=== PATIENT | female | born 1995 | race American Indian/Alaskan Native ===

== ENCOUNTER 2016-10-21 17:03 | Emergency (ER) | payer SELFPAY ==
[2016-10-21] MEDS ORDERED: NORCO 5/325 PO ONE (20:28)
[2016-10-21 20:47] VITALS: BP 150/90
--- NOTE | 2016-10-21 21:00 | Emergency Department Report ---
Entered by ACRLOS RINCON, acting as scribe for CLEMENTINE SINGH PA. HPI - General Chief Complaint: Dental/Oral Time Seen by Provider: 10/21/16 20:10 - HPI HPI: 20 y/o female, PMHx of morbid obesity, asthma, c/o pain of the back middle tooth on the right side beginning 1 day ago, alleviated by Tylenol, no aggravating factors, constant since onset, 10/10 in severity. Associated ear pain but denies chills, fever, SOB, chest pain, nasal congestion and sore throat. Patient noticed the pain while brushing her teeth and states that it feels like a piece of her tooth broke off. [facility] ED Past Medical Hx - Past Medical History Previous Medical History?: Yes Hx Asthma: Yes Additional medical history: MORBID OBESITY - Surgical History Past Surgical History?: No - Family History Family history: hypertension - Social History Smoking Status: Never Smoker Substance Use Type: None - Medications Home Medications: Home Medications Medication Instructions Recorded Confirmed Last Taken Type Acetaminophen/Codeine [Tylenol 1 tab PO Q6H PRN #15 tab 10/21/16 Unknown Rx /Codeine # 3 tab] Amoxicillin [Amoxicillin TAB] 875 mg PO BID #20 tablet 10/21/16 Unknown Rx Ibuprofen [Motrin] 600 mg PO Q8H PRN #21 tablet 10/21/16 Unknown Rx ED Review of Systems ROS: Stated complaint: TOOTH ACHE Other details as noted in HPI Comment: All other systems reviewed and negative Constitutional: denies: chills, fever ENT: ear pain (pain radiating from right lower tooth to right ear), dental pain (right lower tooth) Respiratory: no symptoms reported Cardiovascular: denies: chest pain, palpitations, edema, syncope Gastrointestinal: denies: abdominal pain, nausea, vomiting Musculoskeletal: denies: back pain, arthralgia Skin: denies: rash Neurological: denies: headache, numbness, paresthesias, confusion, abnormal gait , vertigo Physical Exam - Physical Exam Vital Signs: Vital Signs 10/21/16 17:14 Temperature 98.8 F Pulse Rate 93 H Respiratory 15 Rate Blood Pressure 158/110 O2 Sat by Pulse 98 Oximetry Vital Signs 10/21/16 10/21/16 17:14 20:47 Temperature 98.8 F Pulse Rate 93 H Respiratory 15 Rate Blood Pressure 158/110 Blood Pressure 150/90 [Left] O2 Sat by Pulse 98 Oximetry General: This is a 20-year-old female that is morbidly obese, nontoxic in appearance. Physical Exam: Head: Normocephalic atraumatic Mouth: Moist, no pharyngeal exudate or erythema. Uvula is midline and oral airway is patent. No gingival enlargement or dental tenderness. No facial swelling. No peritonsillar abscesses. No dental caries noted.Tooth #29 with fracture. No pulp exposure noted. Neck: Supple, no C-spine tenderness, no tracheal deviation. Nontender to palpate. no adenopathy Ears: Bilateral TMs Pearly arias.bilateral EAC without any redness swelling or drainage Eyes: Bilateral pupils equal and reactive to light, bilateral EOM intact. Bilateral sclera and conjunctiva without injection. Normal accommodation Nose: Mucosa moist, normal mucosa .maxillary and frontal sinus non-tender to palpate. Lungs: Clear to auscultate bilaterally no rhonchi wheezes or rales. Normal work of breathing extremity; No CCE. +2 pulses. No neurovascular compromise Cardiovascular: S1-S2, regular rate rhythm. No murmurs. Skin: clean Dry and intact no rash no lesions Psych: Normal mood and behavior ED Course Vital Signs 10/21/16 17:14 Temperature 98.8 F Pulse Rate 93 H Respiratory 15 Rate Blood Pressure 158/110 O2 Sat by Pulse 98 Oximetry Vital Signs 10/21/16 10/21/16 17:14 20:47 Temperature 98.8 F Pulse Rate 93 H Respiratory 15 Rate Blood Pressure 158/110 Blood Pressure 150/90 [Left] O2 Sat by Pulse 98 Oximetry - Reevaluation(s) Reevaluation #1: 10/21/16 20:52 Patient had [place] 5/325 mg 2 tablets in emergency room for toothache. She is also elevated without any history of high blood pressure she was asymptomatic. Recheck blood pressure better but still mildly elevated. ED Medical Decision Making - Medical Decision Making ED course: Pt here for toothache and diagnosis toothache without any dental caries or gingival enlargement or cellulitis. She received [place] 5/325 2 tablets in emergency room for pain. Blood pressure is elevated in triage but still remains elevated at 150/90 prior to discharge. Discussed the patient that she needs to keep a log of her blood pressure and take her primary care doctor visit for follow-up visit. Patient discharged home on [place], Amox and Motrin. Patient reports that she has a dentist and she'll call to schedule appointment tomorrow. Homans with family in stable condition with prescription for [place], amoxicillin and Motrin Critical care attestation.: If time is entered above; I have spent that time in minutes in the direct care of this critically ill patient, excluding procedure time. ED Disposition Clinical Impression: Toothache, Otalgia, right ear, Elevated BP without diagnosis of hypertension Fracture, tooth Qualifiers: Encounter type: initial encounter Fracture type: closed Qualified Code(s): S02.5XXA - Fracture of tooth (traumatic), initial encounter for closed fracture Disposition: DISCHARGED TO HOME OR SELFCARE Is pt being admited?: No Does the pt Need Aspirin: No Condition: Stable Instructions: Toothache (ED), Earache (ED), Heart Healthy Diet (ED), Hypertension (ED), DASH Eating Plan (ED) Additional Instructions: Follow-up with your dentist, call tomorrow to schedule appointment. Do not take Tylenol No. [address] as this will cause drowsiness. keep a log of your blood pressure on a daily basis and schedule appointment with primary care doctor for blood pressure monitoring. Prescriptions: Acetaminophen/Codeine [Tylenol /Codeine # 3 tab] 1 tab PO Q6H PRN #15 tab PRN Reason: Toothache Amoxicillin [Amoxicillin TAB] 875 mg PO BID #20 tablet Ibuprofen [Motrin] 600 mg PO Q8H PRN #21 tablet PRN Reason: Pain Referrals: PRIMARY CARE, [Primary Care Provider] - 10/26/16 Your, Dentist [Other] - 10/22/16 Forms: Work/School Release Form(ED) This documentation as recorded by the MCKENZIE tamayo MATHEW,accurately reflects the service I personally performed and the decisions made by me,CLEMENTINE SINGH PA.
== END 2016-10-21 21:07 | disposition home or self-care (01) ==
LOC: ED 17:03
DX: S02.5XXA Fracture of tooth (traumatic), initial encounter for closed fracture (principal); H92.01 Otalgia, right ear; R03.0 Elevated blood-pressure reading, without diagnosis of hypertension; J45.909 Unspecified asthma, uncomplicated; E66.01 Morbid (severe) obesity due to excess calories; X58.XXXA Exposure to other specified factors, initial encounter; Y93.9 Activity, unspecified; Y92.9 Unspecified place or not applicable; Y99.9 Unspecified external cause status
CPT/HCPCS: 99282

== ENCOUNTER 2017-05-14 11:18 | Inpatient (IN) | payer SELFPAY ==
[2017-05-14 12:31] LABS: Basophils % (Auto) 0.6 % (0.0-1.8); Eosinophils % (Auto) 1.4 % (0.0-4.3); Hematocrit 46.5 % (30.3-42.9); Hemoglobin 15.2 gm/dl (10.1-14.3); Mean Corpuscular HGB Conc 33 % (30-34); Mean Corpuscular Hemoglobin 29 pg (28-32); Mean Corpuscular Volume 88 fl (79-97); Platelet Count 311 K/mm3 (140-440); Red Blood Count 5.28 M/mm3 (3.65-5.03); Red Cell Distribution Width 14.7 % (13.2-15.2); White Blood Count 7.2 K/mm3 (4.5-11.0)
[2017-05-14 12:57] LABS: Alanine Aminotransferase 636 units/L (7-56); Albumin 4.5 g/dL (3.9-5); Albumin/Globulin Ratio 1.3 %; Alkaline Phosphatase 294 units/L (35-129); BUN/Creatinine Ratio 13; Blood Urea Nitrogen 8 mg/dL (7-17); Calcium 9.2 mg/dL (8.4-10.2); Carbon Dioxide 25 mmol/L (22-30); Glucose 90 mg/dL (65-100); Lipase 11 units/L (13-60); Total Protein 8.1 g/dL (6.3-8.2)
[2017-05-14 12:58] LABS: Anion Gap 22 mmol/L; Chloride 97.8 mmol/L (98-107); Potassium 4.1 mmol/L (3.6-5.0); Sodium 141 mmol/L (137-145)
[2017-05-14 13:28] LABS: Bacteria,Urine 2+ /HPF (Negative); Bilirubin,Urine MOD (Negative); Blood,Urine NEG (Negative); Ketones,Urine NEG (Negative); Leukocyte Esterase,Urine MOD (Negative); Mucus,Urine 1+ /HPF; Nitrite,Urine NEG (Negative)
--- NOTE | 2017-05-14 16:46 | Ultrasound Report ---
FINAL REPORT EXAM: US ABDOMEN COMPLETE HISTORY: abdominal pain, hepatic dysfunction GS, Obst? TECHNIQUE: Ultrasound examination of the abdomen PRIORS: None. FINDINGS: The visible portion of the following structures reveal: Liver: No focal lesion.No enlargement. Gallbladder: No pericholecystic fluid.No evidence of wall thickening.Multiple shadowing echogenic foci most compatible with gallstones. Common bile duct: Normal caliber. Pancreas: No focal abnormality in the visible portion. Spleen: No enlargement with size at upper limits of normal.No focal lesion. Right kidney: No hydronephrosis.No solid mass.No definite calculus. Left kidney: No hydronephrosis.No solid mass.No definite calculus. Ascites: None Abdominal aorta: Normal caliber. IVC: Normal caliber. IMPRESSION: Shadowing echogenic foci most compatible with gallstones in the gallbladder lumen
--- NOTE | 2017-05-14 20:25 | Emergency Department Report ---
ED Abdominal Pain HPI - General Chief Complaint: Abdominal Pain Stated Complaint: CHEST PAIN,VOMITING Time Seen by Provider: 05/14/17 20:21 Source: patient Mode of arrival: Ambulatory Limitations: No Limitations - History of Present Illness Initial Comments: 21YO MORBIDLY OBESE FEMALE AGE CHICKEN WINGS ON WEDNESDAY AND THEN BEGAN TO HAVE INTRACTABLE NAUSEA AND VOMITING. SHE HAS EPIGASTRIC ABDOMINAL PAIN RADIATING TO HER CHEST AND NECK. PAIN IS WORSE WITH DEEP BREATHING. SHE ADMITS TO H/O ASTHMA. MD Complaint: abdominal pain - Related Data Previous Rx's Medication Instructions Recorded Last Taken Type Acetaminophen/Codeine [Tylenol 1 tab PO Q6H PRN #15 tab 10/21/16 Unknown Rx /Codeine # 3 tab] Amoxicillin [Amoxicillin TAB] 875 mg PO BID #20 tablet 10/21/16 Unknown Rx Ibuprofen [Motrin] 600 mg PO Q8H PRN #21 tablet 10/21/16 Unknown Rx Allergies Allergy/AdvReac Type Severity Reaction Status Date / Time No Known Allergies Allergy Unverified 10/21/16 17:12 ED Review of Systems ROS: Stated complaint: CHEST PAIN,VOMITING Other details as noted in HPI Constitutional: denies: chills, fever Eyes: denies: eye pain, eye discharge, vision change ENT: denies: ear pain, throat pain Respiratory: denies: cough, shortness of breath, wheezing Cardiovascular: chest pain. denies: palpitations Endocrine: no symptoms reported Gastrointestinal: abdominal pain, nausea, vomiting. denies: diarrhea Genitourinary: denies: urgency, dysuria, discharge Musculoskeletal: other (NECK PAIN). denies: back pain, joint swelling, arthralgia Skin: denies: rash, lesions Neurological: denies: headache, weakness, paresthesias Psychiatric: denies: anxiety, depression Hematological/Lymphatic: denies: easy bleeding, easy bruising ED Past Medical Hx - Past Medical History Hx Asthma: Yes Additional medical history: MORBID OBESITY - Surgical History Past Surgical History?: No - Social History Smoking Status: Never Smoker Substance Use Type: None - Medications Home Medications: Home Medications Medication Instructions Recorded Confirmed Last Taken Type Acetaminophen/Codeine [Tylenol 1 tab PO Q6H PRN #15 tab 10/21/16 Unknown Rx /Codeine # 3 tab] Amoxicillin [Amoxicillin TAB] 875 mg PO BID #20 tablet 10/21/16 Unknown Rx Ibuprofen [Motrin] 600 mg PO Q8H PRN #21 tablet 10/21/16 Unknown Rx ED Physical Exam - General Limitations: No Limitations General appearance: alert, in no apparent distress - Head Head exam: Present: atraumatic, normocephalic - Eye Eye exam: Present: normal appearance, EOMI, scleral icterus (BILATERAL) - ENT ENT exam: Present: normal orophraynx, mucous membranes moist - Neck Neck exam: Present: normal inspection, full ROM - Respiratory Respiratory exam: Present: normal lung sounds bilaterally. Absent: respiratory distress - Cardiovascular Cardiovascular Exam: Present: regular rate, normal rhythm. Absent: systolic murmur, diastolic murmur, rubs, gallop - GI/Abdominal GI/Abdominal exam: Present: soft, tenderness (RUQ MILS), normal bowel sounds, other (LARGE CENTRIPITAL FAT). Absent: guarding, rebound - Rectal Rectal exam: Present: deferred - Extremities Exam Extremities exam: Present: normal inspection, full ROM - Back Exam Back exam: Present: normal inspection, full ROM - Neurological Exam Neurological exam: Present: alert, oriented X3, CN II-XII intact - Psychiatric Psychiatric exam: Present: normal affect, normal mood - Skin Skin exam: Present: warm, dry, intact, normal color. Absent: rash ED Course Vital Signs 05/14/17 05/14/17 05/14/17 11:53 14:45 19:00 Temperature 98.1 F 98.6 F 98.3 F Pulse Rate 90 77 84 Respiratory 18 16 15 Rate Blood Pressure 135/78 Blood Pressure 144/78 150/90 [Left] O2 Sat by Pulse 98 99 100 Oximetry ED Medical Decision Making - Lab Data Result diagrams: 05/14/17 12:08 05/14/17 12:08 - Radiology Data Radiology results: report reviewed (US:GALLSTONES) Critical Care Time: Yes Critical care time in (mins) excluding proc time.: 60 Critical care attestation.: If time is entered above; I have spent that time in minutes in the direct care of this critically ill patient, excluding procedure time. [facility] ED Disposition Clinical Impression: Abnormal LFTs Cholelithiasis Qualifiers: Cholelithiasis location: gallbladder and bile duct Cholecystitis presence: with cholecystitis Cholecystitis acuity: acute Biliary obstruction: with biliary obstruction Qualified Code(s): K80.63 - Calculus of gallbladder and bile duct with acute cholecystitis with obstruction Nausea & vomiting Qualifiers: Vomiting type: unspecified Vomiting Intractability: intractable Qualified Code( s): R11.2 - Nausea with vomiting, unspecified Disposition: -09 OP ADMIT IP TO THIS HOSP Is pt being admited?: Yes Does the pt Need Aspirin: No Condition: Serious Instructions: Abdominal Pain (ED) Referrals: PRIMARY CARE, [Primary Care Provider] - 3-5 Days Time of Disposition: 21:57 (CASE REVIEWED WITH DR DENNY AND HE WILL ADMIT THE PT TO THE HOSPITAL)
--- NOTE | 2017-05-14 21:46 | History and Physical Report ---
History of Present Illness Date of examination: 05/14/17 Date of admission: 05/14/17 Chief complaint: Upper abdominal pain nausea, vomiting, diarrhea History of present illness: Patient is 21 yo with asthma, morbid obesity. She presents with upper abdominal pain, nausea, vomiting and diarrhea of a few days. Pain is 8/10, sharp pain, , no radiation. Patient states she has been having vomiting and diarrhea several times a day for the past few days. She also mentions she ate some chicken wings the day before and that symptoms may be related to that. In ED abd ultrasound showed gallstones. Labs showed elevated liver function test with Bilirubin of 4.9. She also has jaundice and she states she was not aware of, but states she had jaundice as a baby but had resolved. ED Physician discussed case with Dr. Gomes. Will admit to med/surg floor. Past History Past Medical History: other (asthma, jaundice as a baby) Past Surgical History: No surgical history Social history: single. denies: smoking Family history: diabetes, other (gallstones) Medications and Allergies Allergies Allergy/AdvReac Type Severity Reaction Status Date / Time No Known Allergies Allergy Verified 05/14/17 22:22 Home Medications Medication Instructions Recorded Confirmed Last Taken Type ALBUTEROL Inhaler [Proair] 2 puff IH QID PRN 05/14/17 05/14/17 Unknown History Albuterol Sulfate [Albuterol 0.63% 0.63 mg IH DAILY PRN 05/14/17 05/14/17 Unknown History NEBS] Review of Systems All systems: negative (No chest pain, no SOB, no fever,no cough. All other systems reviewed and are negative.) Exam - Physical Exam Narrative exam: GEN APPEARANCE : Not in acute distress, morbidly obese HEENT: Normocephalic, Atraumatic NECK : supple, no JVD LUNGS: clear to auscultation bilaterally, no rales, no wheeze HEART: S1 and S2 regular, no murmurs, rubs or gallop, ABD: Soft, tender upper abdomen, tender epigastric and right upper quadrant, non distended, normal bowel sounds EXT: No edema, no clubbing, no cyanosis NEURO: Awake,alert, oriented x 3, moves all extremities, non focal, Psych:Normal mood - Constitutional Vitals: Temp Pulse Resp BP Pulse Ox 98.3 F 84 15 150/90 100 05/14/17 19:00 05/14/17 19:00 05/14/17 19:00 05/14/17 19:00 05/14/17 19:00 Results - Labs CBC & Chem 7: 05/14/17 12:08 05/14/17 12:08 Labs: Abnormal lab results 05/14/17 05/14/17 05/14/17 Range/Units 12:08 12:08 12:52 RBC 5.28 H (3.65-5.03) M/mm3 Hgb 15.2 H (10.1-14.3) gm/dl Hct 46.5 H (30.3-42.9) % Citrus % (Auto) 10.5 H (0.0-7.3) % Chloride 97.8 L (98-107) mmol/L Creatinine 0.6 L (0.7-1.2) mg/dL Total Bilirubin 4.90 H (0.1-1.2) mg/dL AST 337 H (5-40) units/L ALT 636 H (7-56) units/L Alkaline Phosphatase 294 H (35-129) units/L Lipase 11 L (13-60) units/L Urine WBC (Auto) 43.0 H (0.0-6.0) /HPF U Epithel Cells (Auto) 37.0 H (0-13.0) /HPF Assessment and Plan Cholelithiasis. Admit to med/surg floor. Abdominal ultrasound does not show acute cystitis, but will give Zosyn until it is ruled out. Obtain CT Abdomen. Consult GI and Surgeon. Hyperbilirubinemia with Bilirubin 4.9 and jaundice. Patient states she was not elevated and she is jaundiced. Consulted GI Elevated AST and ALT. obtain acute hepatitis profile. UTI. Urine culture ordered. Covered with Zosyn . Acute gastroenteritis with nausea, vomiting, diarrhea. Give iv fluids, ordered stool studies. Morbid obesity. I counseled her on importance of diet and exercise to lose weght Asthma. This is stable. No wheezing. Albuterol prn DVT prophylaxis. SCds only since possibility of cholecystectomy Full code status
[2017-05-14] MEDS ORDERED: ZOFRAN IV ONE (21:50)
[2017-05-14] MEDS ORDERED: MORPHINE IV PRN (21:58)
[2017-05-14] MEDS ORDERED: MILK OF MAGNESIA PO PRN (21:58)
[2017-05-14] MEDS ORDERED: DULCOLAX PR PRN (21:58)
[2017-05-14] MEDS ORDERED: ZOFRAN IV PRN (21:58)
[2017-05-14] MEDS ORDERED: TYLENOL PO PRN (21:58)
[2017-05-14] MEDS ORDERED: NACL ONE (22:00)
[2017-05-14] MEDS ORDERED: BENADRYL IV ONE (23:26)
[2017-05-14] MEDS: D5/0.45NS 1,000 ML IV SCH (23:40)
[2017-05-14] MEDS: PEPCID IV SCH (23:48)
--- NOTE | 2017-05-15 00:11 | Cat Scan Report ---
FINAL REPORT PROCEDURE: CT ABDOMEN PELVIS W CON TECHNIQUE: Computerized axial tomography of the abdomen and pelvis was performed after the IV injection of iodinated nonionic contrast. HISTORY: ABD PAIN,ABN LFTS COMPARISON: No prior studies are available for comparison. FINDINGS: Visualized lower thorax: No significant abnormality. Liver: Normal size and attenuation. Spleen: Normal size and attenuation. Gallbladder and biliary system: Normal. Pancreas: Normal. Adrenals: Normal. Kidneys: Normal. GI tract: There is no bowel obstruction, colitis or enteritis. The appendix is normal.. Lymph nodes and mesentery: Normal. Vasculature: Normal. Bladder: Normal. Reproductive organs: Uterus and ovaries are unremarkable per. Peritoneum: There is no ascites, free air, abscess or adenopathy.. Musculoskeletal structures: No significant abnormality. Other: None. IMPRESSION: There is no acute intra-abdominal abnormality.
[2017-05-15] MEDS ORDERED: ZOSYN/NS 4.5GM/100ML 4.5 GM/100 ML VIAL IV ONE (00:28)
[2017-05-15 00:35] LABS: INR 1.03 (0.87-1.13)
[2017-05-15] MEDS ORDERED: PROVENTIL IH PRN (03:13)
[2017-05-15 03:45] LABS: Alanine Aminotransferase 508 units/L (7-56); Albumin 4.2 g/dL (3.9-5); Albumin/Globulin Ratio 1.6 %; Alkaline Phosphatase 283 units/L (35-129); Anion Gap 20 mmol/L; BUN/Creatinine Ratio 13; Bilirubin,Direct 2.7 mg/dL (0-0.2); Bilirubin,Indirect 1.3 mg/dL; Blood Urea Nitrogen 10 mg/dL (7-17); Carbon Dioxide 25 mmol/L (22-30); Chloride 100.1 mmol/L (98-107); Glucose 89 mg/dL (65-100); Potassium 3.9 mmol/L (3.6-5.0); Sodium 141 mmol/L (137-145); Total Protein 6.8 g/dL (6.3-8.2)
[2017-05-15 04:19] LABS: Basophils % (Auto) 0.5 % (0.0-1.8); Eosinophils % (Auto) 1.3 % (0.0-4.3); Hematocrit 42.9 % (30.3-42.9); Hemoglobin 14.4 gm/dl (10.1-14.3); Mean Corpuscular HGB Conc 34 % (30-34); Mean Corpuscular Hemoglobin 30 pg (28-32); Mean Corpuscular Volume 89 fl (79-97); Platelet Count 265 K/mm3 (140-440); Red Blood Count 4.81 M/mm3 (3.65-5.03); White Blood Count 6.3 K/mm3 (4.5-11.0)
[2017-05-15] MEDS: PEPCID IV SCH ×2 (11:36→21:45)
--- NOTE | 2017-05-15 14:40 | Gastroenterology Consultation ---
History of Present Illness - Reason for Consult Consult date: 05/15/17 Jaundice and GB stones Requesting physician: IRASEMA DENNY - History of Present Illness The patient is a 21 year old female for whom consultation was requested for jaundice and GB stones. She developed epigastric, RUQ and chest pain associated with severe nausea and vomiting starting 4 days ago. ER evaluation revealed multiple GB stones, but no dilated bile ducts and CT with contrast was essentially normal. T. bili was 4.9 a AST and ALT were in the 300-600 range. MRCP was ordered but the patient's weight was above 350 lbs and this could not be done. Currently she feels better with little pain and feels hungry. Labs have improved a little over night with the T. bili now 4.0. Past History Past Medical History: other (asthma, jaundice as a baby, morbid obesity) Past Surgical History: No surgical history Social history: single. denies: smoking Family history: diabetes, other (gallstones) Medications and Allergies Allergies Allergy/AdvReac Type Severity Reaction Status Date / Time No Known Allergies Allergy Verified 05/14/17 22:22 Home Medications Medication Instructions Recorded Confirmed Last Taken Type ALBUTEROL Inhaler [Proair] 2 puff IH QID PRN 05/14/17 05/14/17 Unknown History Albuterol Sulfate [Albuterol 0.63% 0.63 mg IH DAILY PRN 05/14/17 05/14/17 Unknown History NEBS] Active Meds: Active Medications Acetaminophen (Tylenol) 650 mg PO Q4H PRN PRN Reason: Pain MILD(1-3)/Fever >100.5/MINER Albuterol (Proventil) 2.5 mg IH Q4HRT PRN PRN Reason: Shortness Of Breath Bisacodyl (Dulcolax) 10 mg MA QDAY PRN PRN Reason: Constipation unrelieved by MOM Famotidine (Pepcid) 20 mg IV NOW [facility] Last Admin: 05/14/17 23:48 Dose: 20 mg Famotidine (Pepcid) 20 mg IV BID [facility] Last Admin: 05/15/17 11:36 Dose: 20 mg Dextrose/Sodium Chloride (D5/0.45ns) 1,000 mls @ 75 mls/hr IV DIRECT [facility] Last Admin: 05/14/17 23:40 Dose: 75 mls/hr Piperacillin Sod/Tazobactam Sod (Zosyn/Ns 4.5gm/100ml) 4.5 gm in 100 mls @ 200 mls/hr IV Q6HR KAROL PRN Reason: Protocol Magnesium Hydroxide (Milk Of Magnesia) 30 ml PO Q4H PRN PRN Reason: Constipation Morphine Sulfate (Morphine) 2 mg IV Q4H PRN PRN Reason: Pain, Moderate (4-6) Ondansetron HCl (Zofran) 4 mg IV Q6H PRN PRN Reason: nausea or vomiting Review of Systems - Review of Systems Constitutional: no weight loss, no weight gain Eyes: no change in vision Ears, Nose, Throat: no decreased hearing, no difficulty swallowing, no epistaxis , no painful swallowing Cardiovascular: no chest pain, no edema, no shortness of breath Respiratory: wheezing (Intermittent wheezing due to asthma), no cough, no shortness of breath Gastrointestinal: abdominal pain, nausea, vomiting, jaundice, no diarrhea, no constipation, no change in bowel habits, no hematemesis, no BRBPR, no melena Rectal: no pain Female Genitourinary: deferred Musculoskeletal: no gait dysfunction, no joint pain, no muscle pain Integumentary: jaundice, no rash, no pruritis Neurological: no head injury, no paralysis, no weakness, no parasthesias Psychiatric: no anxiety, no memory loss, no change in sleep habits Endocrine: no cold intolerance, no heat intolerance Hematologic/Lymphatic: no easy bruising, no easy bleeding Exam - Exam Narrative Exam: Morbidly obese. - Constitutional Vital Signs: Temp Pulse Resp BP Pulse Ox 98.3 F 96 H 13 122/80 100 05/14/17 19:00 05/15/17 06:00 05/15/17 06:00 05/15/17 06:00 05/14/17 19:00 - EENT Eyes: PERRL ENT: hearing intact, clear oral mucosa, dentition normal - Neck Neck: supple, normal ROM, no masses or JVD - Respiratory Respiratory effort: normal Respiratory: bilateral: CTA - Breasts Breasts: deferred - Cardiovascular Rhythm: regular Heart Sounds: Present: S1 & S2. Absent: gallop, rub Extremities: pulses intact, No edema, normal color, Full ROM - Gastrointestinal General gastrointestinal: Present: soft, non-tender, non-distended, distended, hepatomegaly, splenomegaly, other (morbidly obesity) Rectal Exam: deferred - Genitourinary Female Genitourinary: deferred - Integumentary Integumentary: Present: clear, warm, dry - Neurologic Neurological: alert and oriented x3 - Psychiatric Psychiatric: appropriate mood/affect, intact judgment & insight, memory intact - Labs CBC & Chem 7: 05/15/17 03:10 05/15/17 03:10 Lab Results: Laboratory Results - last 24 hr 05/14/17 05/14/17 05/14/17 14:31 18:02 Unknown WBC RBC Hgb Hct MCV MCH MCHC RDW Plt Count Lymph % (Auto) [place] % (Auto) Eos % (Auto) Baso % (Auto) Lymph # [place] # Eos # Baso # Seg Neutrophils % Seg Neutrophils # PT INR Sodium Potassium Chloride Carbon Dioxide Anion Gap BUN Creatinine Estimated GFR BUN/Creatinine Ratio Glucose Calcium Total Bilirubin Direct Bilirubin Indirect Bilirubin AST ALT Alkaline Phosphatase Troponin T < 0.010 < 0.010 Total Protein Albumin Albumin/Globulin Ratio Hepatitis A IgM Ab Non-reactive Hep Bs Antigen Non-reactive Hep B Core IgM Ab Non-reactive Hepatitis C Antibody Non-reactive 05/15/17 05/15/17 05/15/17 00:11 03:10 03:10 WBC 6.3 RBC 4.81 Hgb 14.4 H Hct 42.9 MCV 89 MCH 30 MCHC 34 RDW 15.0 Plt Count 265 Lymph % (Auto) 36.9 H [place] % (Auto) 9.2 H Eos % (Auto) 1.3 Baso % (Auto) 0.5 Lymph # 2.3 [place] # 0.6 Eos # 0.1 Baso # 0.0 Seg Neutrophils % 52.1 Seg Neutrophils # 3.3 PT 14.0 INR 1.03 Sodium 141 Potassium 3.9 Chloride 100.1 Carbon Dioxide 25 Anion Gap 20 BUN 10 Creatinine 0.8 Estimated GFR > 60 BUN/Creatinine Ratio 13 Glucose 89 Calcium 9.0 Total Bilirubin 4.00 H Direct Bilirubin 2.7 H Indirect Bilirubin 1.3 AST 195 H ALT 508 H Alkaline Phosphatase 283 H Troponin T Total Protein 6.8 Albumin 4.2 Albumin/Globulin Ratio 1.6 Hepatitis A IgM Ab Hep Bs Antigen Hep B Core IgM Ab Hepatitis C Antibody Laboratory Results - last 24 hr 05/14/17 05/14/17 05/14/17 14:31 18:02 Unknown WBC RBC Hgb Hct MCV MCH MCHC RDW Plt Count Lymph % (Auto) [place] % (Auto) Eos % (Auto) Baso % (Auto) Lymph # [place] # Eos # Baso # Seg Neutrophils % Seg Neutrophils # PT INR Sodium Potassium Chloride Carbon Dioxide Anion Gap BUN Creatinine Estimated GFR BUN/Creatinine Ratio Glucose Calcium Total Bilirubin Direct Bilirubin Indirect Bilirubin AST ALT Alkaline Phosphatase Troponin T < 0.010 < 0.010 Total Protein Albumin Albumin/Globulin Ratio Hepatitis A IgM Ab Non-reactive Hep Bs Antigen Non-reactive Hep B Core IgM Ab Non-reactive Hepatitis C Antibody Non-reactive 05/15/17 05/15/17 05/15/17 00:11 03:10 03:10 WBC 6.3 RBC 4.81 Hgb 14.4 H Hct 42.9 MCV 89 MCH 30 MCHC 34 RDW 15.0 Plt Count 265 Lymph % (Auto) 36.9 H [place] % (Auto) 9.2 H Eos % (Auto) 1.3 Baso % (Auto) 0.5 Lymph # 2.3 [place] # 0.6 Eos # 0.1 Baso # 0.0 Seg Neutrophils % 52.1 Seg Neutrophils # 3.3 PT 14.0 INR 1.03 Sodium 141 Potassium 3.9 Chloride 100.1 Carbon Dioxide 25 Anion Gap 20 BUN 10 Creatinine 0.8 Estimated GFR > 60 BUN/Creatinine Ratio 13 Glucose 89 Calcium 9.0 Total Bilirubin 4.00 H Direct Bilirubin 2.7 H Indirect Bilirubin 1.3 AST 195 H ALT 508 H Alkaline Phosphatase 283 H Troponin T Total Protein 6.8 Albumin 4.2 Albumin/Globulin Ratio 1.6 Hepatitis A IgM Ab Hep Bs Antigen Hep B Core IgM Ab Hepatitis C Antibody - Imaging X-ray: report reviewed CT Scan: report reviewed Ultrasound: report reviewed Assessment and Plan - Patient Problems (1) Obstructive jaundice Current Visit: Yes Status: Acute Plan to address problem: Probable CBD stones. Although an MRCP could not be done due to her body habitus , the likelihood is high in this setting. Patient will need ERCP. The procedure was discussed at length with the patient, her mother and sister at the bedside as far as the purpose, details of the technique, alternatives ( open surgery with CDE, or observation), and risks including but not limited to bleeding, severe pancreatitis, perforation, infection and independent cardiopulmonary risks of anesthesia. She will need GET for this procedure due to her body habitus. Will observe on antibiotics, full liquids overnight. Will tentatively schedule ERCP for Wednesday. Anesthesia consultation in advance would be helpful. She was further advised of the need for GB surgery electively once the bile duct is cleared. Thank you Dr. Denny. (2) Abnormal LFTs Current Visit: Yes Status: Acute (3) Cholelithiasis Current Visit: Yes Status: Acute Qualifiers: Cholelithiasis location: gallbladder and bile duct Cholecystitis presence: with cholecystitis Cholecystitis acuity: acute Biliary obstruction: with biliary obstruction Qualified Code(s): K80.63 - Calculus of gallbladder and bile duct with acute cholecystitis with obstruction (4) Nausea & vomiting Current Visit: Yes Status: Acute Qualifiers: Vomiting type: unspecified Vomiting Intractability: intractable Qualified Code(s): R11.2 - Nausea with vomiting, unspecified
--- NOTE | 2017-05-15 15:08 | Progress Note ---
Assessment and Plan Cholelithiasis. - monitor to med/surg floor. - Abdominal ultrasound does not show acute cystitis, but will give Zosyn until it is ruled out. - Obtained CT Abdomen as MRI could not be done. Consulted GI and Surgeon. plan for ERCP on Wednesday Hyperbilirubinemia with Bilirubin 4.9 and jaundice. - likely from cholidocholithiasis Elevated AST and ALT. - negative acute hepatitis profile. UTI. - Urine culture ordered. Covered with Zosyn . Acute gastroenteritis with nausea, vomiting, diarrhea. - Give iv fluids, follow stool studies. Morbid obesity. -counseled on importance of diet and exercise to lose weght Asthma. - This is stable. No wheezing. Albuterol prn DVT prophylaxis. - SCds only since possibility of cholecystectomy Full code status Subjective Date of service: 05/15/17 Interval history: pt seen and examined could not get MRCP due to body habitus updated mother and pt at the bedside Objective - Constitutional Vitals: Vital Signs - 12hr 05/15/17 05/15/17 05/15/17 04:00 05:00 06:00 Pulse Rate 89 90 96 H Respiratory 15 16 13 Rate Blood Pressure 123/82 123/82 122/80 General appearance: Present: no acute distress, obese (morbidly) - EENT Eyes: PERRL, EOM intact ENT: hearing intact, clear oral mucosa Ears: bilateral: normal - Neck Neck: supple, normal ROM - Respiratory Respiratory effort: normal Respiratory: bilateral: CTA - Cardiovascular Rhythm: regular Heart Sounds: Present: S1 & S2. Absent: gallop, rub Extremities: pulses intact, No edema, normal color, Full ROM - Gastrointestinal General gastrointestinal: Present: soft, non-tender, normal bowel sounds - Integumentary Integumentary: clear, warm, dry - Musculoskeletal Musculoskeletal: 1, strength equal bilaterally - Neurologic Neurologic: moves all extremities - Psychiatric Psychiatric: memory intact, appropriate mood/affect, intact judgment & insight - Labs CBC & Chem 7: 05/15/17 03:10 05/15/17 03:10 Labs: Abnormal lab results 05/15/17 05/15/17 Range/Units 03:10 03:10 Hgb 14.4 H (10.1-14.3) gm/dl Lymph % (Auto) 36.9 H (13.4-35.0) % [place] % (Auto) 9.2 H (0.0-7.3) % Total Bilirubin 4.00 H (0.1-1.2) mg/dL Direct Bilirubin 2.7 H (0-0.2) mg/dL AST 195 H (5-40) units/L ALT 508 H (7-56) units/L Alkaline Phosphatase 283 H (35-129) units/L - Imaging and cardiology CT scan - abdomen: report reviewed US - abdomen: report reviewed
[2017-05-15] MEDS: D5/0.45NS 1,000 ML IV SCH (21:36)
[2017-05-15] MEDS: ZOSYN/NS 4.5GM/100ML 4.5 GM/100 ML VIAL IV SCH (22:01)
[2017-05-16] MEDS: ZOSYN/NS 4.5GM/100ML 4.5 GM/100 ML VIAL IV SCH ×4 (03:03→18:36)
[2017-05-16] MEDS: PEPCID IV SCH ×2 (03:04→10:51)
--- NOTE | 2017-05-16 14:58 | Gastroenterology Progress Note ---
Assessment and Plan - Patient Problems (1) Obstructive jaundice Current Visit: Yes Status: Acute Plan to address problem: Probable choledocholithiasis. No feasible way to obtain MRCP due to weight limitations. ERCP was discussed again with patient, mother and sister at bedside including the purpose, alternatives, benefits and significant risks. ERCP is planned for tomorrow. Will update labs. (2) Abnormal LFTs Current Visit: Yes Status: Acute (3) Cholelithiasis Current Visit: Yes Status: Acute Qualifiers: Cholelithiasis location: gallbladder and bile duct Cholecystitis presence: with cholecystitis Cholecystitis acuity: acute Biliary obstruction: with biliary obstruction Qualified Code(s): K80.63 - Calculus of gallbladder and bile duct with acute cholecystitis with obstruction (4) Nausea & vomiting Current Visit: Yes Status: Acute Qualifiers: Vomiting type: unspecified Vomiting Intractability: intractable Qualified Code(s): R11.2 - Nausea with vomiting, unspecified Subjective Date of service: 05/16/17 Principal diagnosis: Suspected choledocholithiasis, obstructive jaundice Interval history: The patient reports feeling well today. Tolerating full liquids. No abdominal pain. Objective - Constitutional Vitals: Temp Pulse Resp BP Pulse Ox 98.3 F 99 H 16 107/63 90 05/16/17 11:46 05/16/17 07:36 05/16/17 11:46 05/16/17 11:46 05/16/17 07:36 General appearance: no acute distress, other (Morbidly obese) - EENT ENT: hearing intact, clear oral mucosa, dentition normal - Neck Neck: supple, normal ROM - Respiratory Respiratory effort: normal Respiratory: bilateral: CTA - Cardiovascular Rhythm: regular - Gastrointestinal General gastrointestinal: Present: soft, non-tender, non-distended, normal bowel sounds, other (morbidly obese) - Neurologic Neurological: alert and oriented x3 - Labs CBC & Chem 7: 05/15/17 03:10 05/15/17 03:10
[2017-05-16] MEDS: D5/0.45NS 1,000 ML IV SCH (15:48)
[2017-05-16 16:06] LABS: Alanine Aminotransferase 449 units/L (7-56); Albumin/Globulin Ratio 1.5 %; Alkaline Phosphatase 287 units/L (35-129); Anion Gap 21 mmol/L; BUN/Creatinine Ratio 11; Blood Urea Nitrogen 12 mg/dL (7-17); Calcium 9.2 mg/dL (8.4-10.2); Carbon Dioxide 25 mmol/L (22-30); Chloride 100.5 mmol/L (98-107); Glucose 97 mg/dL (65-100); Potassium 4.3 mmol/L (3.6-5.0); Sodium 142 mmol/L (137-145); Total Protein 6.7 g/dL (6.3-8.2)
--- NOTE | 2017-05-16 21:55 | Progress Note ---
Assessment and Plan Cholelithiasis. - monitor to med/surg floor. - Abdominal ultrasound does not show acute cystitis, but will give Zosyn until it is ruled out. - Obtained CT Abdomen as MRI could not be done. Consulted GI and Surgeon. plan for ERCP tomorrow Hyperbilirubinemia with Bilirubin 4.9 and jaundice. - likely from cholidocholithiasis - cont to monitor liver function Elevated AST and ALT. - negative acute hepatitis profile. UTI. - Urine culture ordered. Covering with Zosyn . Acute gastroenteritis with nausea, vomiting, diarrhea. - Give iv fluids, follow stool studies. Morbid obesity. -counseled on importance of diet and exercise to lose weght Asthma. - This is stable. No wheezing. Albuterol prn DVT prophylaxis. - SCds only since possibility of cholecystectomy Full code status Subjective Date of service: 05/16/17 Principal diagnosis: Suspected choledocholithiasis, obstructive jaundice Interval history: pt seen and examined could not get MRCP due to body habitus updated mother and pt at the bedside denies any abdominal pain and states is controlled with current pain regimen tolerating full liquid diet Objective - Constitutional Vitals: Vital Signs - 12hr 05/16/17 11:46 Temperature 98.3 F Respiratory 16 Rate Blood Pressure 107/63 - Labs CBC & Chem 7: 05/15/17 03:10 05/16/17 15:32 Labs: Abnormal lab results 05/16/17 Range/Units 15:32 Total Bilirubin 4.60 H (0.1-1.2) mg/dL AST 210 H (5-40) units/L ALT 449 H (7-56) units/L Alkaline Phosphatase 287 H (35-129) units/L
--- NOTE | 2017-05-16 23:44 | Consultation ---
HISTORY OF PRESENT ILLNESS: This patient is a 21-year-old black female. She is overweight. She weighs 195 kilograms with a BMI of 69.6 per kilogram per meter square. This patient has been doing fairly well until about last Wednesday when started having some pain to the epigastrium with nausea and vomiting. The vomiting was very severe. She was evaluated in the Emergency Room. She is a known case also of bronchial asthma since she was a child. As mentioned above, she is morbidly obese. She did have some loose stool a few days before. The pain to her was sharp in the right upper quadrant radiating to the left upper aspect. This came after eating some chicken. She had a sonogram of the gallbladder area that showed stones and the liver enzymes were very elevated. The bilirubin was 4.9. She has never been to hospital for any reason. She does take some treatments for her asthma every now and then. She never had surgery before. She has no children. She gives a history of diabetes in the family. She does not have diabetes. PHYSICAL EXAMINATION: GENERAL: Showed obese black female. She is in no distress to me. She weighs 195.7 kilograms. HEAD AND NECK: Negative. NECK: Supple. BREASTS: Symmetrical, very large and pendulous. CHEST: Essentially clear to me. HEART: The heart sound normal. ABDOMEN: Protuberant, soft, minimal tenderness? in the right upper quadrant. EXTREMITIES: Showed minimal edema. IMPRESSION AND PLAN: Right upper quadrant pain, nausea and vomiting with elevated bilirubin and liver enzymes. I believe this need to be addressed with further studies. She was seen by Dr. Redman who is going to do an ERCP on her tomorrow, then go from there. I did have a lengthy talk with the patient and her mom and will be waiting on those results. In the meantime, check her liver enzymes again on a daily basis. JOB# [id number] BEVERLY/HARIKA
[2017-05-17] MEDS: ZOSYN/NS 4.5GM/100ML 4.5 GM/100 ML VIAL IV SCH ×5 (00:25→23:47)
[2017-05-17] MEDS: PEPCID IV SCH ×4 (00:25→22:04)
[2017-05-17] MEDS: D5/0.45NS 1,000 ML IV SCH (05:12)
--- NOTE | 2017-05-17 09:38 | Anesthesia Consultation ---
Anesthesia Consult and Med Hx Date of service: 05/17/17 - Airway Anesthetic Teeth Evaluation: Good ROM Head & Neck: Adequate Mental/Hyoid Distance: Adequate Mallampati Class: Class III Intubation Access Assessment: Possibly Difficult - Pre-Operative Health Status ASA Pre-Surgery Classification: ASA3 Proposed Anesthetic Plan: General - Pulmonary Hx Asthma: Yes - Other Systems Hx Obesity: Yes (Morbid obesity BMI 69.6) - Additional Comments Anesthesia Medical History Comments: Due to patient's size, decided to perform ERCP in OR under general anesthesia
--- NOTE | 2017-05-17 09:41 | Anesthesia Day of Surgery ---
Anesthesia Day of Surgery - Day of Surgery Patient Examined: Yes Patient H&P Reviewed: Yes Patient is NPO: Yes
[2017-05-17] MEDS ORDERED: NACL 0.9% 1000 ML 1,000 ML IV SCH (10:00)
[2017-05-17] MEDS ORDERED: QUELICIN ONE (10:12)
[2017-05-17] MEDS ORDERED: DIPRIVAN 10 MG/ML IV ONE ×2 (10:12→11:28)
[2017-05-17] MEDS ORDERED: XYLOCAINE MPF 2% ONE (10:12)
[2017-05-17] MEDS ORDERED: ZOFRAN ONE (10:13)
[2017-05-17] MEDS ORDERED: NACL 0.9% 100 ML ONE (10:51)
[2017-05-17] MEDS ORDERED: WATER FOR IRRIG STERILE IR ONE (10:51)
[2017-05-17] MEDS ORDERED: SUBLIMAZE ONE (10:54)
[2017-05-17] MEDS ORDERED: NEO SYNEPHRINE/NS Syringe(OR USE) IV ONE (11:10)
[2017-05-17] MEDS ORDERED: NACL 0.9% 1000 ML 1,000 ML ONE (11:14)
[2017-05-17] MEDS ORDERED: DECADRON ONE (11:43)
--- NOTE | 2017-05-17 12:36 | Operative Report ---
Operative Report Operative Report: Date of procedure: 05/17/2017 Preprocedure diagnoses: Suspected common bile duct stones. Her bilirubin of 4.9 , gallbladder stones. MRCP could not be obtained due to weight limitations Postprocedure diagnoses: Suspected stone passage from the common bile duct. Normal pancreatic duct. Procedure: Endoscopic retrograde cholangiopancreatography with sphincterotomy and balloon sweeping of the duct. Medications: Gen. endotracheal anesthesia Estimated blood loss: 0 Endoscopist: Hebert Redman M.D. After careful discussion of the nature and purpose of the procedure, risks, benefits, and alternatives consent was obtained. The patient was intubated by anesthesia and placed under anesthesia. The patient was placed in the supine position on the fluoroscopy table in the operating room. Considerable effort was required to position the patient, secure the airway and secure access for passage of the scope through the oral cavity. Because of the patient's extreme obesity there was some trauma from the patient biting her tongue and from the difficulty in getting the mouthpiece into position. She was given IV steroids by anesthesia to reduce the swelling. The Fujinon 570 side-viewing therapeutic videoscope was carefully passed per orum into the esophagus and advanced into the stomach. The stomach was insufflated with air and the contents aspirated clear. The scope was initially retroflexed. The cardia and fundus were normal. The scope was then straightened and further advanced. The antrum was normal. The scope was passed through the pylorus into the duodenum. The duodenal bulb and descending duodenum were normal in appearance. The ampulla was somewhat patulous suggesting stone passage. Next, the cannulatome was utilized to intubate the pancreatic duct. The pancreatic duct appeared [normal in caliber throughout. There were no strictures or filling defects in the pancreatic duct.]. The common bile duct was then cannulated without difficulty. The common bile duct appeared [normal in size however there was a suspected small filling defect distally in the duct. A guidewire was used to successfully obtain a deep cannulation of the common bile duct. A small papillotomy was then performed followed by 2 balloon sweeping procedures of the common bile duct. No definite stones or gravel however were removed. The duct appeared to be draining well fluoroscopically. The procedure was well-tolerated overall and she was sent to the PACU for recovery. Conclusions: Suspected common bile duct stone passage. Status post papillotomy and balloon clearance of the duct. Normal-appearing pancreatic duct. Plan: The patient. Follow-up labs. Advance to full liquid diet. The patient may be considered for referral to a specialty center in light of her morbid obesity for definitive gallbladder surgery. Electronically signed: Hebert Redman M.D.
[2017-05-17] MEDS ORDERED: NACL 0.45% 1000 ML 1,000 ML IV ONE (12:50)
--- NOTE | 2017-05-17 13:04 | Post Anesthesia Evaluation ---
- Post Anesthesia Evaluation Patient Participated: Yes Airway Patent: Yes Stable Respiratory Function: Yes Nausea/Vomiting: No Temp > 96.8F: Yes Pain Manageable: Yes Adequeate Hydration: Yes Anesthesia Complications: No Block Receding Appropriately: Not Applicable Patient on Ventilator: No
--- NOTE | 2017-05-17 14:25 | Fluoroscopy Report ---
FLUOROSCOPY ERCP BILIARY PANCREATIC DUCT History: Obstructive jaundice. Findings: Fluoroscopy was provided by radiology during ERCP by Dr. Redman of gastroenterology. 12 fluoroscopic images were captured. Please correlate with the procedural report. Impression: Successful ERCP under fluoroscopic guidance.
--- NOTE | 2017-05-17 14:50 | Progress Note ---
Assessment and Plan Cholelithiasis. - monitor to med/surg floor. - Abdominal ultrasound does not show acute cystitis, but will give Zosyn until it is ruled out. - Obtained CT Abdomen as MRI could not be done. Consulted GI and Surgeon. - s/p ERCP today with sphincterotomy and balloon sweeping of the duct for suspected CBD stone passage Hyperbilirubinemia with Bilirubin 4.9 and jaundice. - likely from cholidocholithiasis - cont to monitor liver function, negative hepatitis pannel - LFT trending down Elevated AST and ALT. - negative acute hepatitis profile. UTI. - Urine culture ordered. Covering with Zosyn . Acute gastroenteritis with nausea, vomiting, diarrhea. - Give iv fluids, follow stool studies. Morbid obesity. -counseled on importance of diet and exercise to lose weght Asthma. - This is stable. No wheezing. Albuterol prn DVT prophylaxis. - SCds only since possibility of cholecystectomy Full code status Physical exam: General appearance: Present: no acute distress, obese (morbidly) - EENT Eyes: PERRL, EOM intact ENT: hearing intact, clear oral mucosa Ears: bilateral: normal - Neck Neck: supple, normal ROM - Respiratory Respiratory effort: normal Respiratory: bilateral: CTA - Cardiovascular Rhythm: regular Heart Sounds: Present: S1 & S2. Absent: gallop, rub Extremities: pulses intact, No edema, normal color, Full ROM - Gastrointestinal General gastrointestinal: Present: soft, non-tender, normal bowel sounds - Integumentary Integumentary: clear, warm, dry - Musculoskeletal Musculoskeletal: 1, strength equal bilaterally - Neurologic Neurologic: moves all extremities - Psychiatric Psychiatric: memory intact, appropriate mood/affect, intact judgment & insight Subjective Date of service: 05/17/17 Principal diagnosis: Suspected choledocholithiasis, obstructive jaundice Interval history: pt seen and examined could not get MRCP due to body habitus updated mother and pt at the bedside s/p ERCP today Objective - Constitutional Vitals: Vital Signs - 12hr 05/17/17 05/17/17 05/17/17 07:50 09:25 09:34 Temperature 97.9 F 98.4 F 98.4 F Pulse Rate 88 101 H 101 H Respiratory 16 12 12 Rate Blood Pressure 109/56 139/85 139/85 O2 Sat by Pulse 96 97 97 Oximetry 05/17/17 05/17/17 05/17/17 12:45 12:50 12:55 Temperature Pulse Rate 85 82 82 Respiratory 17 15 20 Rate Blood Pressure 133/70 144/94 140/104 O2 Sat by Pulse 97 100 98 Oximetry 05/17/17 05/17/17 13:00 13:15 Temperature Pulse Rate 76 83 Respiratory 15 16 Rate Blood Pressure 135/88 139/88 O2 Sat by Pulse 99 100 Oximetry - Labs CBC & Chem 7: 05/15/17 03:10 05/18/17 07:06 Labs: Abnormal lab results 05/16/17 Range/Units 15:32 Total Bilirubin 4.60 H (0.1-1.2) mg/dL AST 210 H (5-40) units/L ALT 449 H (7-56) units/L Alkaline Phosphatase 287 H (35-129) units/L
[2017-05-18] MEDS: D5/0.45NS 1,000 ML IV SCH (02:13)
--- NOTE | 2017-05-18 04:42 | Progress Note ---
Subjective Narrative: seen Pt and mom yesterday post ERCP , reviewed wit Dr Obando , Pt underwent papillotomy sphicteroplasty , and billiary sweep m, alert and responsive talk to Mom as to the need for surgery eventually ,Talked to Dr Redman will try transfer to [facility] to ?Dr Michael Laura service ? will contact him , Objective Vital Signs - 12hr 05/17/17 19:59 Temperature 98.2 F Pulse Rate 77 Respiratory 18 Rate Blood Pressure 109/69 O2 Sat by Pulse 98 Oximetry - Labs 05/15/17 03:10 05/16/17 15:32
[2017-05-18] MEDS: ZOSYN/NS 4.5GM/100ML 4.5 GM/100 ML VIAL IV SCH ×2 (05:44→11:53)
[2017-05-18 07:46] LABS: Alanine Aminotransferase 312 units/L (7-56); Albumin 3.8 g/dL (3.9-5); Albumin/Globulin Ratio 1.2 %; Alkaline Phosphatase 243 units/L (35-129); Anion Gap 17 mmol/L; BUN/Creatinine Ratio 8; Blood Urea Nitrogen 7 mg/dL (7-17); Calcium 8.6 mg/dL (8.4-10.2); Carbon Dioxide 28 mmol/L (22-30); Glucose 98 mg/dL (65-100); Potassium 3.9 mmol/L (3.6-5.0); Sodium 142 mmol/L (137-145); Total Protein 6.9 g/dL (6.3-8.2)
[2017-05-18] MEDS: PEPCID IV SCH (10:23)
--- NOTE | 2017-05-18 13:38 | Discharge Summary ---
Providers - Providers Date of Admission: 05/14/17 21:58 Date of discharge: 05/18/17 Attending physician: ROZINA JARRELL 05/14/17 21:57 Consult to Physician [CONS] Stat Consulting Provider: AILIN STORY Reason For Exam: CHOLECYSTITIS Place consult to:: ED Notified:: 2046 Was contact made?: Yes If yes, spoke with:: DR STORY Time called:: 20:47 Comment:: HAVE HOSPITALIST ADMIT PT, GET GI CONSULT FOR ERCP/MRCP, GET CT OF ABD/PELV 05/14/17 21:58 Consult to Physician [CONS] Routine Consulting Provider: AILIN STORY Reason For Exam: Gall stones Place consult to:: Dr. Story Notified:: yes Comment:: Dr. Lyons notified Dr. Story at 20:47 on 05/14/17 05/14/17 22:01 Consult to Physician [CONS] Routine Consulting Provider: CLAIRE WOODS Reason For Exam: Cholelithiasis Place consult to:: answering service Notified:: yes Phone number called:: [phone] Was contact made?: Yes If yes, spoke with:: Marimar Time called:: 08:36 Primary care physician: [facility] [employer] Hospitalization Condition: Serious Hospital course: The patient is a 21 year old female presented with epigastric, RUQ and chest pain associated with severe nausea and vomiting starting 4 days ago. ER evaluation revealed multiple GB stones, but no dilated bile ducts and CT with contrast was essentially normal. T. bili was 4.9 a AST and ALT were in the 300- 600 range. MRCP was ordered but the patient's weight was above 350 lbs and this could not be done. Gi was consulted and proceeded with ERCP with papillotomy. Per GI She might have passed the stone shortly before the procedure. She will be referred to [place] for GB surgery but is also interested in bariatric surgery which she will also address at the time of her general surgery visit. Patient is to call GI office in the next few days to assist in arranging this appointment. Patient was cleared for discharged and discharged home in stable condition. Discharge diagnosis and management: Cholelithiasis. - admitted to med/surg floor. - Abdominal ultrasound does not show acute Cholicystitis, but empirically covered with Zosyn - Obtained CT Abdomen as MRI could not be done. Consulted GI and general Surgeon. - s/p ERCP today with sphincterotomy and balloon sweeping of the duct for suspected CBD stone passage Obstructive jaundice - Hyperbilirubinemia with Bilirubin 4.9 - likely from cholidocholithiasis - cont to monitor liver function, negative hepatitis pannel - LFT trending down Elevated AST and ALT. - negative acute hepatitis profile. UTI. - Treated with Zosyn . Acute gastroenteritis with nausea, vomiting, diarrhea. - Placed on iv fluids, antiemetics - symptom resolved on discharge Morbid obesity. -counseled on importance of diet and exercise to lose weght Asthma. - This is stable. No wheezing. Albuterol prn DVT prophylaxis. - SCds only Full code status Disposition: DC-01 TO HOME OR SELFCARE Time spent for discharge: 32 minutes Core Measure Documentation - Palliative Care Palliative Care/ Comfort Measures: Not Applicable - Core Measures Any of the following diagnoses?: none Exam - Physical Exam Narrative exam: Physical exam: General appearance: Present: no acute distress, obese (morbidly) - EENT Eyes: PERRL, EOM intact ENT: hearing intact, clear oral mucosa Ears: bilateral: normal - Neck Neck: supple, normal ROM - Respiratory Respiratory effort: normal Respiratory: bilateral: CTA - Cardiovascular Rhythm: regular Heart Sounds: Present: S1 & S2. Absent: gallop, rub Extremities: pulses intact, No edema, normal color, Full ROM - Gastrointestinal General gastrointestinal: Present: soft, non-tender, normal bowel sounds - Integumentary Integumentary: clear, warm, dry - Musculoskeletal Musculoskeletal: 1, strength equal bilaterally - Neurologic Neurologic: moves all extremities - Psychiatric Psychiatric: memory intact, appropriate mood/affect, intact judgment & insight - Constitutional Vitals: Temp Pulse Resp BP Pulse Ox 98.0 F 67 20 106/58 98 05/18/17 07:34 05/18/17 07:34 05/18/17 07:34 05/18/17 07:34 05/18/17 07:34 Plan Activity: advance as tolerated Weight Bearing Status: Weight Bear as Tolerated Diet: low fat, low salt Follow up with: PRIMARY CARE, [Primary Care Provider] - 3-5 Days Forms: Work/School Release Form Prescriptions: ALBUTEROL Inhaler [ProAir HFA Inhaler] 2 puff IH QID PRN #1 inha PRN Reason: Shortness Of Breath Albuterol Sulfate [Albuterol 0.63% NEBS] 0.63 mg IH DAILY PRN #30 vial.neb PRN Reason: Wheezing Ciprofloxacin HCl [Ciprofloxacin TAB] 500 mg PO Q12H #6 tab
[2017-05-18 15:23] VITALS: BP 125/80
--- NOTE | 2017-05-18 15:43 | Gastroenterology Progress Note ---
Assessment and Plan - Patient Problems (1) Obstructive jaundice Current Visit: Yes Status: Acute Plan to address problem: Rapidly resolving jaundice. S/p ERCP and papillotomy. Now asymptomatic. I suspect she passed the stone shortly before the procedure. Stable for discharge. She will be referred to [place] for GB surgery but is also interested in bariatric surgery which she will also address at the time of her general surgery visit. Patient is to call my office in the next few days for us to assist in arranging this appointment. (2) Abnormal LFTs Current Visit: Yes Status: Acute (3) Cholelithiasis Current Visit: Yes Status: Acute Qualifiers: Cholelithiasis location: gallbladder and bile duct Cholecystitis presence: with cholecystitis Cholecystitis acuity: acute Biliary obstruction: with biliary obstruction Qualified Code(s): K80.63 - Calculus of gallbladder and bile duct with acute cholecystitis with obstruction (4) Nausea & vomiting Current Visit: Yes Status: Acute Qualifiers: Vomiting type: unspecified Vomiting Intractability: intractable Qualified Code(s): R11.2 - Nausea with vomiting, unspecified Subjective Date of service: 05/18/17 Principal diagnosis: Suspected choledocholithiasis, obstructive jaundice Interval history: The patient reports feeling well today. No abdominal pain, nausea or vomiting. Objective - Constitutional Vitals: Temp Pulse Resp BP Pulse Ox 98.2 F 93 H 16 125/80 100 05/18/17 15:20 05/18/17 15:20 05/18/17 15:20 05/18/17 15:20 05/18/17 15:20 General appearance: no acute distress - EENT ENT: hearing intact, clear oral mucosa, dentition normal - Respiratory Respiratory effort: normal Respiratory: bilateral: CTA - Cardiovascular Rhythm: regular - Gastrointestinal General gastrointestinal: Present: soft, non-tender, non-distended, normal bowel sounds, other (morbidly obese) - Neurologic Neurological: alert and oriented x3 - Labs CBC & Chem 7: 05/15/17 03:10 05/18/17 07:06 Labs: Laboratory Results - last 24 hr 05/18/17 07:06 Sodium 142 Potassium 3.9 Chloride 101.0 Carbon Dioxide 28 Anion Gap 17 BUN 7 Creatinine 0.9 Estimated GFR > 60 BUN/Creatinine Ratio 8 Glucose 98 Calcium 8.6 Total Bilirubin 2.10 H AST 75 H ALT 312 H Alkaline Phosphatase 243 H Total Protein 6.9 Albumin 3.8 L Albumin/Globulin Ratio 1.2
--- NOTE | 2017-05-18 16:52 | Progress Note ---
Subjective Narrative: Doing fine ambulatory , margret ced to 2+ will d/c home to see Dr Michael Velasquez i talked to him . for Lap Pearl .LOW Fat diet . Objective Vital Signs - 12hr 05/18/17 05/18/17 07:34 15:20 Temperature 98.0 F 98.2 F Pulse Rate 67 93 H Respiratory 20 16 Rate Blood Pressure 106/58 125/80 O2 Sat by Pulse 98 100 Oximetry - Labs 05/15/17 03:10 05/18/17 07:06 Diabetes panel 05/18/17 Range/Units 07:06 Sodium 142 (137-145) mmol/L Potassium 3.9 (3.6-5.0) mmol/L Chloride 101.0 (98-107) mmol/L Carbon Dioxide 28 (22-30) mmol/L BUN 7 (7-17) mg/dL Creatinine 0.9 (0.7-1.2) mg/dL Glucose 98 (65-100) mg/dL Calcium 8.6 (8.4-10.2) mg/dL AST 75 H (5-40) units/L ALT 312 H (7-56) units/L Alkaline Phosphatase 243 H (35-129) units/L Total Protein 6.9 (6.3-8.2) g/dL Albumin 3.8 L (3.9-5) g/dL Calcium panel 05/18/17 Range/Units 07:06 Calcium 8.6 (8.4-10.2) mg/dL Albumin 3.8 L (3.9-5) g/dL Pituitary panel 05/18/17 Range/Units 07:06 Sodium 142 (137-145) mmol/L Potassium 3.9 (3.6-5.0) mmol/L Chloride 101.0 (98-107) mmol/L Carbon Dioxide 28 (22-30) mmol/L BUN 7 (7-17) mg/dL Creatinine 0.9 (0.7-1.2) mg/dL Glucose 98 (65-100) mg/dL Calcium 8.6 (8.4-10.2) mg/dL Adrenal panel 05/18/17 Range/Units 07:06 Sodium 142 (137-145) mmol/L Potassium 3.9 (3.6-5.0) mmol/L Chloride 101.0 (98-107) mmol/L Carbon Dioxide 28 (22-30) mmol/L BUN 7 (7-17) mg/dL Creatinine 0.9 (0.7-1.2) mg/dL Glucose 98 (65-100) mg/dL Calcium 8.6 (8.4-10.2) mg/dL Total Bilirubin 2.10 H (0.1-1.2) mg/dL AST 75 H (5-40) units/L ALT 312 H (7-56) units/L Alkaline Phosphatase 243 H (35-129) units/L Total Protein 6.9 (6.3-8.2) g/dL Albumin 3.8 L (3.9-5) g/dL
== END 2017-05-18 17:45 | disposition home or self-care (01) | DRG 444 ==
LOC: ED 11:18 → 3A 21:58
PROVIDERS: ADMIT Internal Medicine; ATTEND Internal Medicine
PROC: 0F798ZZ Dilation of Common Bile Duct, Via Natural or Artificial Opening Endoscopic (ICD-10-PCS; principal; 2017-05-17)
PROC: BF111ZZ Fluoroscopy of Biliary and Pancreatic Ducts using Low Osmolar Contrast (ICD-10-PCS; 2017-05-17)
DX: K80.20 Calculus of gallbladder without cholecystitis without obstruction (principal); K83.1 Obstruction of bile duct; N39.0 Urinary tract infection, site not specified; Z68.44 Body mass index [BMI] 60.0-69.9, adult; K52.9 Noninfective gastroenteritis and colitis, unspecified; E66.01 Morbid (severe) obesity due to excess calories; J45.909 Unspecified asthma, uncomplicated; Z83.3 Family history of diabetes mellitus
CPT/HCPCS: 36415; 74177; 74330; 76700; 80048; 80053; 80074; 81001; 82248; 83690; 84484; 84703; 85025; 85610; 87040; 87086; 93005; 93010; 96365; 96366; 96375; 96376; C1726; J0330; J1100; J1200; J2370; J2405; J2543; J2704; J3010; J7030; Q9967

== ENCOUNTER 2017-09-10 08:54 | Emergency (ER) | payer SELFPAY ==
[2017-09-10] MEDS ORDERED: DUONEB *Not for PRN Use IH ONE ×2 (09:34→09:44)
--- NOTE | 2017-09-10 11:25 | Emergency Department Report ---
- General Chief Complaint: Adult Asthma Stated Complaint: SOB Time Seen by Provider: 09/10/17 11:21 Source: patient Mode of arrival: Ambulatory Limitations: No Limitations - History of Present Illness Initial Comments: Patient reports difficulty breathing with wheezing upon awakening this am since the elevated pollen count this season. She only uses albuterol for rescue breathing MD Complaint: other (wheezing) Onset/Timin -: hour(s) Severity scale (0 -10): 5 Quality: other (none) Consistency: constant Improves With: nothing, other Worsens With: activity, deep breaths Context: other (pollen) Associated Symptoms: denies other symptoms, shortness of breath. denies: fever , chills, myalgias, diaphoresis, headache, rhinorrhea, nasal congestion, sore throat, stiff neck, cough, chest pain, abdominal pain, nausea, vomiting, diarrhea, dysuria, rash, confusion, right sweats, weight loss, epistaxis, hoarseness, ear pain Treatments Prior to Arrival: other (albuterol inhaler) - Related Data Previous Rx's Medication Instructions Recorded Last Taken Type Albuterol Sulfate [Albuterol 0.63% 0.63 mg IH DAILY PRN #30 vial.neb 05/18/17 Unknown Rx NEBS] Ciprofloxacin HCl [Ciprofloxacin 500 mg PO Q12H #6 tab 05/18/17 Unknown Rx TAB] ALBUTEROL Inhaler [ProAir HFA 2 puff IH QID PRN #1 inha 09/10/17 Unknown Rx Inhaler] Fexofenadine HCl [Monae Allergy] 180 mg PO DAILY #15 tablet 09/10/17 Unknown Rx Fluticasone [Flonase] 1 spray NS QDAY #1 bottle 09/10/17 Unknown Rx predniSONE [Deltasone] 20 mg PO BID #20 tab 09/10/17 Unknown Rx Allergies Allergy/AdvReac Type Severity Reaction Status Date / Time bupropion [From Contrave] Allergy Mild Angioedema Verified 05/15/17 17:27 naltrexone [From Contrave] Allergy Mild Angioedema Verified 05/15/17 17:27 Iodinated Contrast- Oral and Allergy Unknown Anaphylaxis Verified 05/15/17 17:27 IV Dye ED Review of Systems ROS: Stated complaint: SOB Other details as noted in HPI Constitutional: denies: chills, fever Eyes: denies: eye pain, eye discharge, vision change ENT: congestion (nasal). denies: ear pain, throat pain, dental pain, hearing loss, epistaxis Respiratory: SOB with exertion, wheezing. denies: cough, orthopnea, shortness of breath, SOB at rest, stridor Cardiovascular: denies: chest pain, palpitations, dyspnea on exertion, orthopnea , edema, syncope, paroxysmal nocturnal dyspnea Gastrointestinal: denies: abdominal pain, nausea, diarrhea Musculoskeletal: denies: back pain, joint swelling, arthralgia Skin: denies: rash, lesions Neurological: denies: headache, weakness, paresthesias Psychiatric: denies: anxiety, depression ED Past Medical Hx - Past Medical History Previous Medical History?: Yes Hx Asthma: Yes Additional medical history: MORBID OBESITY - Surgical History Past Surgical History?: No - Social History Smoking Status: Never Smoker - Medications Home Medications: Home Medications Medication Instructions Recorded Confirmed Last Taken Type Albuterol Sulfate [Albuterol 0.63% 0.63 mg IH DAILY PRN #30 vial.neb 05/18/17 Unknown Rx NEBS] Ciprofloxacin HCl [Ciprofloxacin 500 mg PO Q12H #6 tab 05/18/17 Unknown Rx TAB] ALBUTEROL Inhaler [ProAir HFA 2 puff IH QID PRN #1 inha 09/10/17 Unknown Rx Inhaler] Fexofenadine HCl [Monae Allergy] 180 mg PO DAILY #15 tablet 09/10/17 Unknown Rx Fluticasone [Flonase] 1 spray NS QDAY #1 bottle 09/10/17 Unknown Rx predniSONE [Deltasone] 20 mg PO BID #20 tab 09/10/17 Unknown Rx ED Physical Exam - General Limitations: No Limitations General appearance: alert, in no apparent distress - Head Head exam: Present: atraumatic, normocephalic - Eye Eye exam: Present: normal appearance, PERRL, EOMI Pupils: Present: normal accommodation - ENT ENT exam: Present: normal exam, normal orophraynx, mucous membranes moist, TM's normal bilaterally, normal external ear exam, other (nasal turbinates pale and boggy). Absent: mucous membranes dry - Neck Neck exam: Present: normal inspection, full ROM. Absent: tenderness, meningismus, lymphadenopathy, thyromegaly - Respiratory Respiratory exam: Present: normal lung sounds bilaterally, wheezes (mild). Absent: respiratory distress, rales, rhonchi, stridor, chest wall tenderness, accessory muscle use, decreased breath sounds, prolonged expiratory - Cardiovascular Cardiovascular Exam: Present: regular rate, normal rhythm, normal heart sounds. Absent: bradycardia, tachycardia, irregular rhythm, systolic murmur, diastolic murmur, rubs, gallop - GI/Abdominal GI/Abdominal exam: Present: soft, normal bowel sounds. Absent: distended, tenderness, guarding, rebound, rigid - Back Exam Back exam: Present: normal inspection, full ROM - Neurological Exam Neurological exam: Present: alert, oriented X3, CN II-XII intact, normal gait, reflexes normal. Absent: motor sensory deficit - Psychiatric Psychiatric exam: Present: normal affect, normal mood - Skin Skin exam: Present: warm, dry, intact, normal color. Absent: rash ED Course Vital Signs 09/10/17 09/10/17 09/10/17 09:28 09:55 11:43 Temperature 97.7 F Pulse Rate 92 H 97 H Pulse Rate [ 71 Bilateral] Respiratory 18 20 Rate Respiratory 20 Rate [Bilateral ] Blood Pressure 150/107 Blood Pressure 148/96 [Right] O2 Sat by Pulse 98 97 Oximetry - Reevaluation(s) Reevaluation #1: 09/10/17 11:25 Duoneb given in triage ED Medical Decision Making - Lab Data Vital Signs 09/10/17 09/10/17 09:28 09:55 Temperature 97.7 F Pulse Rate 92 H Pulse Rate [ 71 Bilateral] Respiratory 18 Rate Respiratory 20 Rate [Bilateral ] Blood Pressure 150/107 O2 Sat by Pulse 98 Oximetry - Medical Decision Making During the course of ED, a duoneb was ordered. Patient reports breathing and wheezing much better after Duoneb given in triage. Patient sent home with prescriptions for Monae, Albuterol inhaler, Prednisone and Flonase, instructed to follow up with PCP. She verbalized understanding - Differential Diagnosis Asthma Exacerbation, Upper Respiratory Infection Critical care attestation.: If time is entered above; I have spent that time in minutes in the direct care of this critically ill patient, excluding procedure time. ED Disposition Clinical Impression: Asthma exacerbation Qualifiers: Asthma severity: mild Asthma persistence: intermittent Qualified Code(s): J45.21 - Mild intermittent asthma with (acute) exacerbation Upper respiratory infection Qualifiers: URI type: unspecified URI Qualified Code(s): J06.9 - Acute upper respiratory infection, unspecified Disposition: DC-01 TO HOME OR SELFCARE Is pt being admited?: No Does the pt Need Aspirin: No Condition: Stable Instructions: Asthma (ED), Upper Respiratory Infection (ED) Additional Instructions: Take medication as directed. Follow up with your PCP Prescriptions: ALBUTEROL Inhaler [ProAir HFA Inhaler] 2 puff IH QID PRN #1 inha PRN Reason: Shortness Of Breath Fexofenadine HCl [Monae Allergy] 180 mg PO DAILY #15 tablet Fluticasone [Flonase] 1 spray NS QDAY #1 bottle predniSONE [Deltasone] 20 mg PO BID #20 tab Referrals: PRIMARY CARE, [Primary Care Provider] - 3-5 Days [facility] [Outside] - 3-5 Days [facility] [Outside] - 3-5 Days Forms: Work/School Release Form(ED) Time of Disposition: 11:31
[2017-09-10 11:44] VITALS: BP 148/96
== END 2017-09-10 11:43 | disposition home or self-care (01) ==
LOC: ED 08:54
DX: J45.21 Mild intermittent asthma with (acute) exacerbation (principal); J06.9 Acute upper respiratory infection, unspecified; E66.01 Morbid (severe) obesity due to excess calories; Z68.45 Body mass index [BMI] 70 or greater, adult; Z88.8 Allergy status to other drugs, medicaments and biological substances; Z91.041 Radiographic dye allergy status
CPT/HCPCS: 99282

== ENCOUNTER 2017-10-09 15:35 | Emergency (ER) | payer SELFPAY ==
[2017-10-09 15:48] VITALS: BP 166/113
== END 2017-10-09 15:45 | disposition left against medical advice (07) ==
LOC: ED 15:35
DX: R11.2 Nausea with vomiting, unspecified (principal); R10.9 Unspecified abdominal pain; J45.909 Unspecified asthma, uncomplicated; Z88.8 Allergy status to other drugs, medicaments and biological substances; Z53.21 Procedure and treatment not carried out due to patient leaving prior to being seen by health care provider